=== PATIENT | male | born 1960 | race Caucasian/White ===

== ENCOUNTER 2018-07-20 02:26 | Inpatient (IN) | payer MEDICAID, OTHER ==
[~2018-07-20] VITALS: Ht 182.9 cm; Wt 71.4 kg
--- NOTE | 2018-07-20 02:34 | PHYS DOC ---
Past Medical History Past Medical History: VT Past Surgical History: Other Additional Past Surgical Histo: CARDIAC STENTS, TEETH REMOVAL Smoking: Cigarettes, Less than 1pk/day Alcohol Use: Occasionally Drug Use: None Adult General Chief Complaint Chief Complaint: CHEST PAIN HPI HPI Patient is a 57 year old man who presents with CP Patient is a poor historian and had onset of CP after waking up tonight. He drank a 12 pack of beer prior to falling asleep. Pain was substernal, sharp non radiating. In the field, he was diaphoretic and was given aspirin and NTG SL in route. He's had prior VT with cardiac stenting in 2009. Review of Systems Review of Systems Constitutional: Denies fever or chills Eyes: Denies change in visual acuity, redness, or eye pain HENT: Denies nasal congestion or sore throat Respiratory: Denies cough or shortness of breath Cardiovascular: with chest pain GI: Denies abdominal pain, nausea, vomiting, bloody stools or diarrhea : Denies dysuria or hematuria Musculoskeletal: Denies back pain or joint pain Integument: Denies rash or skin lesions Neurologic: Denies headache, focal weakness or sensory changes Endocrine: Denies polyuria or polydipsia All other systems were reviewed and found to be within normal limits, except as documented in this note. Current Medications Current Medications Current Medications Medications (Trade) Dose Ordered Sig/Jud Start Time Stop Time Status Last Admin Dose Admin Multi-Ingredient Mouthwash/Gargle (Gi Cocktail) 20 ml 1X ONCE 07/20/18 03:15 07/20/18 03:16 DC 07/20/18 03:52 20 ML Pantoprazole Sodium (PROTONIX VIAL for IV PUSH) 40 mg 1X ONCE 07/20/18 03:15 07/20/18 03:16 DC 07/20/18 03:52 40 MG Allergies Allergies Allergies Coded Allergies Type Severity Reaction Last Updated Verified morphine Adverse Reaction Intermediate 06/09/15 No Physical Exam Physical Exam Constitutional: Well developed, well nourished, no acute distress, non-toxic appearance. ETOH on breath HENT: Normocephalic, atraumatic, bilateral external ears normal, oropharynx moist, no oral exudates, nose normal. Eyes: PERRLA, EOMI, conjunctiva normal, no discharge. Neck: Normal range of motion, no tenderness, supple, no stridor. Cardiovascular: Slow rate and rhythm, no murmur Lungs & Thorax: Bilateral breath sounds clear to auscultation Abdomen: Bowel sounds normal, soft, no tenderness, no masses, no pulsatile masses. Rectal exam: normal tone stool brown, no blood or melena Skin: Warm, dry, no erythema, no rash. Back: No tenderness, no CVA tenderness. Extremities: No tenderness, no cyanosis, no clubbing, ROM intact, no edema. Neurologic: Alert and oriented X 3, normal motor function, normal sensory function, no focal deficits noted. Psychologic: Affect normal, judgement normal, mood normal. Current Patient Data Vital Signs Vital Signs Date Time Temp Pulse Resp B/P (MAP) Pulse Ox O2 Delivery O2 Flow Rate FiO2 07/20/18 04:19 78 22 135/87 (103) 100 Room Air Lab Values Laboratory Tests Test 07/20/18 02:38 07/20/18 02:40 POC Hemoglobin 12.9 g/dL (14-18) L POC Hematocrit 38 % (37-52) POC Sodium 133 mmol/L (135-145) L POC Potassium 4.2 mmol/L (3.5-5.0) POC Chloride 98 mmol/L (98-110) POC Total CO2 21 mmol/L (23-32) L Anion Gap 19 mmol/L (6-14) H 13 (6-14) POC Blood Urea Nitrogen 14 mg/dL (8-26) POC Creatinine 1.3 mg/dL (0.5-1.4) Glucose Level 112 mg/dL (70-99) H 115 mg/dL (70-99) H POC Ionized Calcium (Elizabeth) 1.01 mmol/L (1.13-1.32) L POC Troponin I 0.00 ng/ml (<0.08) White Blood Count 10.3 x10^3/uL (4.0-11.0) Red Blood Count 4.00 x10^6/uL (4.30-5.70) L Hemoglobin 13.1 g/dL (13.0-17.5) Hematocrit 37.5 % (39.0-53.0) L Mean Corpuscular Volume 94 fL (79-100) Mean Corpuscular Hemoglobin 33 pg (25-35) Mean Corpuscular Hemoglobin Concent 35 g/dL (31-37) Red Cell Distribution Width 13.8 % (11.5-14.5) Platelet Count 187 x10^3/uL (140-400) Neutrophils (%) (Auto) 79 % (31-73) H Lymphocytes (%) (Auto) 13 % (24-48) L Monocytes (%) (Auto) 6 % (0-9) Eosinophils (%) (Auto) 1 % (0-3) Basophils (%) (Auto) 1 % (0-3) Neutrophils # (Auto) 8.1 x10^3uL (1.8-7.7) H Lymphocytes # (Auto) 1.3 x10^3/uL (1.0-4.8) Monocytes # (Auto) 0.6 x10^3/uL (0.0-1.1) Eosinophils # (Auto) 0.1 x10^3/uL (0.0-0.7) Basophils # (Auto) 0.1 x10^3/uL (0.0-0.2) D-Dimer (Beverly) 0.43 ug/mlFEU (0.00-0.50) Sodium Level 134 mmol/L (136-145) L Potassium Level 4.3 mmol/L (3.5-5.1) Chloride Level 98 mmol/L (98-107) Carbon Dioxide Level 23 mmol/L (21-32) Blood Urea Nitrogen 15 mg/dL (8-26) Creatinine 1.2 mg/dL (0.7-1.3) Estimated GFR (Cockcroft-Gault) 62.2 BUN/Creatinine Ratio 13 (6-20) Calcium Level 8.8 mg/dL (8.5-10.1) Magnesium Level 2.0 mg/dL (1.8-2.4) Total Bilirubin 0.2 mg/dL (0.2-1.0) Aspartate Amino Transferase (AST) 20 U/L (15-37) Alanine Aminotransferase (ALT) 23 U/L (16-63) Alkaline Phosphatase 97 U/L (46-116) Troponin I Quantitative < 0.017 ng/mL (0.000-0.055) IY-Dmj-V-Type Natriuretic Peptide 44 pg/mL (0-124) Total Protein 7.2 g/dL (6.4-8.2) Albumin 3.4 g/dL (3.4-5.0) Albumin/Globulin Ratio 0.9 (1.0-1.7) L Lipase 470 U/L (73-393) H Ethyl Alcohol Level 128 mg/dL (0-10) H Laboratory Tests 07/20/18 02:40 Laboratory Tests 07/20/18 02:38 07/20/18 02:40 EKG EKG ECG 02:28 SB @ 56 with IRBBB Radiology/Procedures Radiology/Procedures Preliminary Emergency Department Reading CXR showed poor inspiration with no acute cardiopulmonary findings Course & Med Decision Making Course & Med Decision Making Pertinent Labs and Imaging studies reviewed. (See chart for details) Emergency Department course Patient presents with chest pain and alcohol intoxication DDx- ACS, GERD, PE, Pneumonia, Pancreatitis, alcoholic gastritis Patient was stable in the ED. ECG and troponin showed no evidence of ACS. CXR unremarkable . D-dimer normal, doubt PE. Lipase elevated consistent with pancreatitis. Serum ethanol level elevated. Heart score=4. Patient was given aspirin by EMS. 04:[address] Leal, telemetry for further evaluation 05:[address] eLal who agreed with admission. Dragon Disclaimer Dragon Disclaimer This electronic medical record was generated, in whole or in part, using a voice recognition dictation system. Departure Departure Impression: Primary Impression: Chest pain Additional Impressions: Alcohol intoxication Elevated lipase Disposition: ADMITTED INPATIENT Admitting Physician: Nicole Leal Condition: STABLE Referrals: NO PCP (PCP) Problem Qualifiers Primary Impression: Chest pain Chest pain type: precordial pain Qualified Codes: R07.2 - Precordial pain Additional Impressions: Alcohol intoxication Complication of substance-induced condition: uncomplicated Qualified Codes: F10.920 - Alcohol use, unspecified with intoxication, uncomplicated SAMANTA TINOCO MD Jul 20, 2018 02:34
[2018-07-20 02:50] LABS: BASO # 0.1 x10^3/uL (0.0-0.2); BASO % 1 % (0-3); EOS # 0.1 x10^3/uL (0.0-0.7); EOS % 1 % (0-3); HEMATOCRIT 37.5 % (39.0-53.0); HEMOGLOBIN 13.1 g/dL (13.0-17.5); LYMPH # 1.3 x10^3/uL (1.0-4.8); LYMPH % 13 % (24-48); MEAN CORPUSCULAR HEMOGLOBIN 33 pg (25-35); MEAN CORPUSCULAR HGB CONC 35 g/dL (31-37); MEAN CORPUSCULAR VOLUME 94 fL (79-100); MONO # 0.6 x10^3/uL (0.0-1.1); MONO % 6 % (0-9); NEUT # 8.1 x10^3uL (1.8-7.7); NEUT % 79 % (31-73); PLATELET COUNT 187 x10^3/uL (140-400); RED CELL DISTRIBUTION WIDTH 13.8 % (11.5-14.5); WHITE BLOOD COUNT 10.3 x10^3/uL (4.0-11.0)
[2018-07-20 02:51] LABS: CREATININE ISTAT 1.3 mg/dL (0.5-1.4); HEMOGLOBIN ISTAT 12.9 g/dL (14-18); ION CA ISTAT 1.01 mmol/L (1.13-1.32); POTASSIUM ISTAT 4.2 mmol/L (3.5-5.0)
[2018-07-20 03:02] LABS: CALCIUM 8.8 mg/dL (8.5-10.1); CREATININE 1.2 mg/dL (0.7-1.3); GFR 62.2; POTASSIUM 4.3 mmol/L (3.5-5.1)
[2018-07-20 03:07] LABS: ALBUMIN 3.4 g/dL (3.4-5.0); ALBUMIN/GLOBULIN RATIO 0.9 (1.0-1.7); TOTAL BILIRUBIN 0.2 mg/dL (0.2-1.0); TOTAL PROTEIN 7.2 g/dL (6.4-8.2)
[2018-07-20] MEDS ORDERED: LIDO:MAALOX 1:1 20 ML SINGLE DOSE. PO ONE (03:15)
[2018-07-20] MEDS ORDERED: PANTOPRAZOLE IV PUSH 40 MG VIAL. IVP ONE (03:15)
[2018-07-20] MEDS ORDERED: ONDANSETRON PF 4 MG/2 ML VIAL. IM ONE (04:45)
[2018-07-20] MEDS ORDERED: ONDANSETRON PF 4 MG/2 ML VIAL. IV PRN ×2 (04:45→10:30)
[2018-07-20] MEDS ORDERED: SUCRALFATE 1 GM/10 ML ORAL.SUSP. PO ONE (05:15)
--- NOTE | 2018-07-20 06:12 | EKG ---
[facility] [address] [place] [address] Test Date: 2018-07-20 Test Time: 02:28:34 Pat Name: ABBY FERGUSON Department: Room: 562 1 Gender: M Php Developer: : 1960 Requested By: SAMANTA TINOCO Order Number: [id number] Reading MD: Tanmay Steinberg MD Measurements Intervals Kermit Rate: 56 P: 57 DE: 156 QRS: 34 QRSD: 68 T: 53 QT: 448 QTc: 435 Interpretive Statements SINUS RHYTHM RBBB NON-SPECIFIC ST/T CHANGES Electronically Signed On 07-21-2018 13:45:42 CDT by Tanmay Steinberg MD
[2018-07-20 06:20] VITALS: BP 141/104
[2018-07-20 06:52] LABS: FECAL OB PT NEGATIVE (NEG)
[2018-07-20] MEDS ORDERED: THIA100T22 PO (07:36)
[2018-07-20] MEDS ORDERED: BUPR200T2 PO (07:36)
[2018-07-20] MEDS ORDERED: ESCITALOPRAM OX10 MG PO (07:36)
[2018-07-20] MEDS ORDERED: FOLI1TAB16 PO (07:36)
[2018-07-20] MEDS ORDERED: CALC300T5 PO (07:36)
[2018-07-20] MEDS ORDERED: ASPI325T8 PO (07:36)
--- NOTE | 2018-07-20 08:13 | RAD ---
EXAM: CHEST 1 VIEW History: Chest pain COMPARISON: 03/19/2012 TECHNIQUE: Single portable radiograph of the chest FINDINGS: The cardiac silhouette is unremarkable. Scattered calcified granulomas identified in the bilateral lungs. Minimal prominent appearing interstitial lung markings. IMPRESSION: Minimal prominent appearing bilateral interstitial lung markings could be minimal congestive changes or interstitial infiltrates. Electronically signed by: Raymon Truong MD (07/20/2018 8:09 AM) [id number]
[2018-07-20] MEDS ORDERED: DOCUSATE SODIUM 100 MG CAPSULE. PO PRN (10:30)
[2018-07-20] MEDS ORDERED: ACETAMINOPHEN 325 MG TABLET. PO PRN (10:30)
[2018-07-20 11:00] VITALS: BP 127/85
--- NOTE | 2018-07-20 11:24 | PDOC1 ---
History and Physical Date of Admission Date of Admission 07/19/18 Identification/Chief Complaint Chief Complaint abd pain Source Source: Chart review, Patient History of Present Illness History of Present Illness Patient is a 57 year old man who presents with abd pain yesterday. PT denies heavy drinker, but yesterday drink 12 packs of beer. He went to sleep , then woke up with epigastric abd pain, burning, constant, 10-/10, no radiation. He didnot have fever, chills, sob. He told ERP chest pain, and diaphoretic. He was given aspirin and NTG SL in route. He's had prior SC with cardiac stenting in 2009. He got gi cocktail in ER, not helping. Now the abd pain is mainly middle abd, 6/10, no tenderness. took lots of tums at home daily. pt only takes asa for SC. Past Medical History Past Medical History pseudoseizure conversion syndrome, chronic fatigue syndrome CAD with 1 stent 2009, [facility] Past Surgical History Past Surgical History: No pertinent history Family History Family History: Hypertension Social History Smoke: <1 pack per day ALCOHOL: heavy Drugs: None Current Problem List Problem List Problems Medical Problems: (1) Alcohol intoxication Status: Acute (2) Chest pain Status: Acute (3) Elevated lipase Status: Acute Current Medications Current Medications Current Medications Medications (Trade) Dose Ordered Sig/Jud Start Time Stop Time Status Last Admin Dose Admin Acetaminophen (Tylenol) 650 mg PRN Q6HRS PRN 07/20/18 10:30 Aspirin (Ecotrin) 325 mg [id number] 07/21/18 08:00 Bupropion HCl (Wellbutrin Sr) 400 mg DAILY 07/20/18 11:00 Carvedilol (Coreg) 6.25 mg BIDWMEALS 07/20/18 11:00 Citalopram Hydrobromide (CeleXA) 20 mg DAILY 07/20/18 11:00 Docusate Sodium (Colace) 100 mg PRN DAILY PRN 07/20/18 10:30 Folic Acid (Folic Acid) 1 mg DAILY 07/20/18 11:00 Multi-Ingredient Mouthwash/Gargle (Gi Cocktail) 20 ml 1X ONCE 07/20/18 03:15 07/20/18 03:16 DC 07/20/18 03:52 Ondansetron HCl (Zofran) 4 mg PRN Q6HRS PRN 07/20/18 10:30 Pantoprazole Sodium (PROTONIX VIAL for IV PUSH) 40 mg 1X ONCE 07/20/18 03:15 07/20/18 03:16 DC 07/20/18 03:52 Pantoprazole Sodium (Protonix) 40 mg DAILYAC 07/20/18 11:00 Sucralfate (Carafate) 1 gm 1X ONCE 07/20/18 05:15 07/20/18 05:16 DC 07/20/18 05:12 Thiamine Mononitrate (Vitamin B-1) 100 mg DAILY 07/20/18 11:00 Tramadol HCl (Ultram) 50 mg PRN Q6HRS PRN 07/20/18 10:30 Allergies Allergies Allergies Coded Allergies Type Severity Reaction Last Updated Verified morphine Adverse Reaction Intermediate 06/09/15 No ROS Review of System CONSTITUTIONAL: No fever or chills EYES: No recent changes SKIN: No rash or itching CARDIOVASCULAR: No chest pain, syncope, palpitations, or edema RESPIRATORY: No SOB or cough GASTROINTESTINAL: No nausea, vomiting or abdominal pain NEUROLOGICAL: No headaches or weakness ENDOCRINE: No cold or heat intolerance GENITOURINARY: No urgency or frequency of urination MUSCULOSKELETAL: No back pain or joint pain LYMPHATICS: No enlarged lymph nodes PSYCHIATRIC: No anxiety or depression Physical Exam Physical Exam GEN.: No apparent distress. Alert and oriented. HEENT: Head is normocephalic, atraumatic NECK: Supple. LUNGS: Clear to auscultation. HEART: RRR, S1, S2 present. Peripheral pulses intact ABDOMEN: Soft, Positive bowel sounds. no tenderness. EXTREMITIES: Without any cyanosis. NEUROLOGIC: Normal speech, normal tone PSYCHIATRIC: Normal affect, normal mood. SKIN: No ulcerations Vitals Vitals Vital Signs Date Time Temp Pulse Resp B/P (MAP) Pulse Ox O2 Delivery O2 Flow Rate FiO2 07/20/18 10:32 Room Air 07/20/18 06:20 97.7 75 20 141/104 (116) 96 97.7 Labs Labs Laboratory Tests Test 07/20/18 02:38 07/20/18 02:40 07/20/18 05:40 07/20/18 07:26 Bedside Hemoglobin 12.9 g/dL (14-18) Bedside Hematocrit 38 % (37-52) Bedside Sodium 133 mmol/L (135-145) Bedside Potassium 4.2 mmol/L (3.5-5.0) Bedside Chloride 98 mmol/L (98-110) Bedside Total CO2 21 mmol/L (23-32) Anion Gap 19 mmol/L (6-14) 13 (6-14) Bedside Blood Urea Nitrogen 14 mg/dL (8-26) Bedside Creatinine 1.3 mg/dL (0.5-1.4) Glucose Level 112 mg/dL (70-99) 115 mg/dL (70-99) Bedside Ionized Calcium (Elizabeth) 1.01 mmol/L (1.13-1.32) Bedside Troponin I 0.00 ng/ml (<0.08) White Blood Count 10.3 x10^3/uL (4.0-11.0) Red Blood Count 4.00 x10^6/uL (4.30-5.70) Hemoglobin 13.1 g/dL (13.0-17.5) Hematocrit 37.5 % (39.0-53.0) Mean Corpuscular Volume 94 fL (79-100) Mean Corpuscular Hemoglobin 33 pg (25-35) Mean Corpuscular Hemoglobin Concent 35 g/dL (31-37) Red Cell Distribution Width 13.8 % (11.5-14.5) Platelet Count 187 x10^3/uL (140-400) Neutrophils (%) (Auto) 79 % (31-73) Lymphocytes (%) (Auto) 13 % (24-48) Monocytes (%) (Auto) 6 % (0-9) Eosinophils (%) (Auto) 1 % (0-3) Basophils (%) (Auto) 1 % (0-3) Neutrophils # (Auto) 8.1 x10^3uL (1.8-7.7) Lymphocytes # (Auto) 1.3 x10^3/uL (1.0-4.8) Monocytes # (Auto) 0.6 x10^3/uL (0.0-1.1) Eosinophils # (Auto) 0.1 x10^3/uL (0.0-0.7) Basophils # (Auto) 0.1 x10^3/uL (0.0-0.2) D-Dimer (Beverly) 0.43 ug/mlFEU (0.00-0.50) Sodium Level 134 mmol/L (136-145) Potassium Level 4.3 mmol/L (3.5-5.1) Chloride Level 98 mmol/L (98-107) Carbon Dioxide Level 23 mmol/L (21-32) Blood Urea Nitrogen 15 mg/dL (8-26) Creatinine 1.2 mg/dL (0.7-1.3) Estimated GFR (Cockcroft-Gault) 62.2 BUN/Creatinine Ratio 13 (6-20) Calcium Level 8.8 mg/dL (8.5-10.1) Magnesium Level 2.0 mg/dL (1.8-2.4) Total Bilirubin 0.2 mg/dL (0.2-1.0) Aspartate Amino Transf (AST/SGOT) 20 U/L (15-37) Alanine Aminotransferase (ALT/SGPT) 23 U/L (16-63) Alkaline Phosphatase 97 U/L (46-116) Troponin I Quantitative < 0.017 ng/mL (0.000-0.055) < 0.017 ng/mL (0.000-0.055) AI-Blt-X-Type Natriuretic Peptide 44 pg/mL (0-124) Total Protein 7.2 g/dL (6.4-8.2) Albumin 3.4 g/dL (3.4-5.0) Albumin/Globulin Ratio 0.9 (1.0-1.7) Lipase 470 U/L (73-393) Ethyl Alcohol Level 128 mg/dL (0-10) Stool Occult Blood Negative (NEG) Laboratory Tests Test 07/20/18 02:38 07/20/18 02:40 07/20/18 05:40 07/20/18 07:26 Bedside Hemoglobin 12.9 g/dL (14-18) Bedside Hematocrit 38 % (37-52) Bedside Sodium 133 mmol/L (135-145) Bedside Potassium 4.2 mmol/L (3.5-5.0) Bedside Chloride 98 mmol/L (98-110) Bedside Total CO2 21 mmol/L (23-32) Anion Gap 19 mmol/L (6-14) 13 (6-14) Bedside Blood Urea Nitrogen 14 mg/dL (8-26) Bedside Creatinine 1.3 mg/dL (0.5-1.4) Glucose Level 112 mg/dL (70-99) 115 mg/dL (70-99) Bedside Ionized Calcium (Elizabeth) 1.01 mmol/L (1.13-1.32) Bedside Troponin I 0.00 ng/ml (<0.08) White Blood Count 10.3 x10^3/uL (4.0-11.0) Red Blood Count 4.00 x10^6/uL (4.30-5.70) Hemoglobin 13.1 g/dL (13.0-17.5) Hematocrit 37.5 % (39.0-53.0) Mean Corpuscular Volume 94 fL (79-100) Mean Corpuscular Hemoglobin 33 pg (25-35) Mean Corpuscular Hemoglobin Concent 35 g/dL (31-37) Red Cell Distribution Width 13.8 % (11.5-14.5) Platelet Count 187 x10^3/uL (140-400) Neutrophils (%) (Auto) 79 % (31-73) Lymphocytes (%) (Auto) 13 % (24-48) Monocytes (%) (Auto) 6 % (0-9) Eosinophils (%) (Auto) 1 % (0-3) Basophils (%) (Auto) 1 % (0-3) Neutrophils # (Auto) 8.1 x10^3uL (1.8-7.7) Lymphocytes # (Auto) 1.3 x10^3/uL (1.0-4.8) Monocytes # (Auto) 0.6 x10^3/uL (0.0-1.1) Eosinophils # (Auto) 0.1 x10^3/uL (0.0-0.7) Basophils # (Auto) 0.1 x10^3/uL (0.0-0.2) D-Dimer (Beverly) 0.43 ug/mlFEU (0.00-0.50) Sodium Level 134 mmol/L (136-145) Potassium Level 4.3 mmol/L (3.5-5.1) Chloride Level 98 mmol/L (98-107) Carbon Dioxide Level 23 mmol/L (21-32) Blood Urea Nitrogen 15 mg/dL (8-26) Creatinine 1.2 mg/dL (0.7-1.3) Estimated GFR (Cockcroft-Gault) 62.2 BUN/Creatinine Ratio 13 (6-20) Calcium Level 8.8 mg/dL (8.5-10.1) Magnesium Level 2.0 mg/dL (1.8-2.4) Total Bilirubin 0.2 mg/dL (0.2-1.0) Aspartate Amino Transf (AST/SGOT) 20 U/L (15-37) Alanine Aminotransferase (ALT/SGPT) 23 U/L (16-63) Alkaline Phosphatase 97 U/L (46-116) Troponin I Quantitative < 0.017 ng/mL (0.000-0.055) < 0.017 ng/mL (0.000-0.055) HV-Llm-T-Type Natriuretic Peptide 44 pg/mL (0-124) Total Protein 7.2 g/dL (6.4-8.2) Albumin 3.4 g/dL (3.4-5.0) Albumin/Globulin Ratio 0.9 (1.0-1.7) Lipase 470 U/L (73-393) Ethyl Alcohol Level 128 mg/dL (0-10) Stool Occult Blood Negative (NEG) VTE Prophylaxis Ordered VTE Prophylaxis Devices: Yes VTE Pharmacological Prophylaxi: Yes Assessment/Plan Assessment/Plan abd pain, 2/2 gastritis vs ulcer pseudoseizure conversion syndrome, chronic fatigue syndrome CAD with 1 stent 2009, [facility] tobacco[facility] slightly elevated lipase HTN accelerated plan: gi consult add protonix daily EKG, CE neg. check echo cont home meds, on asa repeat labs tmr dvt ppx talked to sister at bedside pain control consider ABD US AND ADD sucralfate if not better add coreg for htn, mi history. check lipid panel CASSIE NOGUERA MD Jul 20, 2018 11:24
[2018-07-20] MEDS: ENOXAPARIN 40 MG/0.4 ML SYRINGE. SQ SCH (11:38)
[2018-07-20] MEDS: THIAMINE 100 MG TABLET. PO SCH (11:38)
[2018-07-20] MEDS: CITALOPRAM 20 MG TABLET. PO SCH (11:38)
[2018-07-20] MEDS: FOLIC ACID 1 MG TABLET. PO SCH (11:38)
[2018-07-20] MEDS: PANTOPRAZOLE 40 MG TABLET.DR. PO SCH (11:38)
[2018-07-20] MEDS: CARVEDILOL 6.25 MG TABLET. PO SCH ×2 (11:39→17:59)
--- NOTE | 2018-07-20 12:33 | CARD ---
MR#: [id number] Date of Study: 07/20/2018 Ordering Physician: CASSIE NOGUERA, Referring Physician: ERIC CHAN Tech: Felisa Mcleod APPROVED REPORT EXAM: Two-dimensional and M-mode echocardiogram with Doppler and color Doppler. Other Information Quality : AverageHR: 71bpm Technically limited study due to body habitus. INDICATION Chest Pain 2D DIMENSIONS RVDd3.0 (2.9-3.5cm)Left Atrium(2D)3.3 (1.6-4.0cm) IVSd0.8 (0.7-1.1cm)Aortic Root(2D)3.4 (2.0-3.7cm) LVDd4.2 (3.9-5.9cm)LVOT Diameter2.5 (1.8-2.4cm) PWd1.2 (0.7-1.1cm)LVDs2.5 (2.5-4.0cm) FS (%) 40.9 %SV56.2 ml LVEF(%)72.1 (>50%) Aortic Valve AoV Peak Jonatan.143.0cm/sAoV VTI27.9cm AO Peak GR.8.2mmHgLVOT Peak Jonatan.114.2cm/s LVOT VTI 26.03cmAO Mean GR.4mmHg DAI (VMAX)2.53dj7YHH (VTI)4.44cm2 Mitral Valve MV E Rumxjrgc40.3cm/sMV DECEL [id number] MV A Gheyoodh26.6cm/sMV FEB39fr E/A Ratio1.4MVA (PHT)3.39cm2 TDI E/Lateral E'6.9E/Medial E'9.6 Pulmonary Valve PV Peak Fyvnotwv213.4cm/sPV Peak Grad.5mmHg Tricuspid Valve RAP [id number] Peak Gr.35mmHg [id number] LEFT VENTRICLE The left ventricle is normal size. There is normal left ventricular wall thickness. The left ventricu lar systolic function is normal and the ejection fraction is within normal range. The Ejection Fracti on is 60-65%. There is normal LV segmental wall motion. Transmitral Doppler flow pattern is normal fo r age. RIGHT VENTRICLE The right ventricle is normal size. There is normal right ventricular wall thickness. The right ventr icular systolic function is normal. ATRIA The left atrium size is normal. The right atrium size is normal. The interatrial septum is intact wit h no evidence for an atrial septal defect or patent foramen ovale as noted on 2-D or Doppler imaging. AORTIC VALVE The aortic valve is normal in structure and function. Doppler and Color Flow revealed trace aortic re gurgitation. Calculated aortic valve area is 4 cm2 with maximum pressure gradient of 8 mmHg and mean pressure gradient of 4 mmHg. MITRAL VALVE The mitral valve is thickened but opens well. There is no mitral valve stenosis. Doppler and Color-fl ow revealed trace mitral regurgitation. TRICUSPID VALVE The tricuspid valve is normal in structure and function. Doppler and Color Flow revealed trace tricus pid regurgitation. There is no tricuspid valve stenosis. PULMONIC VALVE The pulmonic valve is not well visualized. Doppler and Color Flow revealed trace pulmonic valvular re gurgitation. There is no pulmonic valvular stenosis. GREAT VESSELS The aortic root is normal in size. The IVC is normal in size and collapses >50% with inspiration. PERICARDIAL EFFUSION There is no evidence of significant pericardial effusion. Critical Notification Critical Value: No <Conclusion> The left ventricular systolic function is normal and the ejection fraction is within normal range. Th e Ejection Fraction is 60-65%. There is normal LV segmental wall motion. Signed by : Tanmay Steinberg, Electronically Approved : 07/20/2018 12:32:36
[2018-07-20] MEDS: traMADol 50 MG TABLET PO PRN ×2 (12:59→22:23)
[2018-07-20] MEDS: buPROPion SR 100 MG TABLET.SA. PO SCH (12:59)
[2018-07-20] MEDS ORDERED: CALCIUM CARBONATE 500 MG TAB.CHEW PO PRN (13:15)
--- NOTE | 2018-07-20 14:26 | PDOC2 ---
GI CONSULT Reason For Consult: Epigastric pain/abnormal lipase HPI: HPI: 57 y/o male awoken from sleep early today with epigastric pain; describes "burning". No antacids in the house so came to ER. He downplays chronic symptoms, though sister says "eats TUMS". Denies typical heartburn or dysphagia. Did have EGD at [place] years ago, but no recall of findings nor practitioner. Denies pc bloating, but frequent early satiety and more of a nosher than regular meal-eater. No h/o PUD, GB, liver or pancreatic disease. ASA 325 daily; no NSAIDS. Smokes 1/2 ppd or so. Heavy drinker in the past; less so now, but occasional binge as last night. Occasional constipation he attributes to his meds. No diarrhea, overt blood in stool nor melena. Has lost ~8# over past year. Appetite variable. Denies N, V. Had colonoscopy this year at [facility] that was OK. GIFH positive for GB disease in sister. PMH: PMH: Conversion disorder/pseudoseizures, CFS (sister says "LYME"), ASHD post PCI, Anxiety. Multiple tooth extractions, otherwise no surgery. FH: Family History: Hypertension Social History: Smoke: <1 pack per day ALCOHOL: heavy Drugs: None ROS: GEN: Denies fevers, chills, sweats HEENT: Denies blurred vision, sore throat CV: Denies chest pain RESP: Denies shortness of air, cough GI: Per HPI : Denies hematuria, dysuria ENDO: Denies weight changes NEURO: Denies confusion, dizziness MSK: Denies weakness, joint pain/swelling SKIN: Denies jaundice, pruritus Vitals: Vitals: Vital Signs Date Time Temp Pulse Resp B/P (MAP) Pulse Ox O2 Delivery O2 Flow Rate FiO2 07/20/18 12:59 18 94 Room Air 07/20/18 11:39 83 127/85 07/20/18 11:00 97.5 97.5 Labs: Labs: Laboratory Tests Test 07/20/18 02:38 07/20/18 02:40 07/20/18 05:40 07/20/18 07:26 Bedside Hemoglobin 12.9 g/dL (14-18) Bedside Hematocrit 38 % (37-52) Bedside Sodium 133 mmol/L (135-145) Bedside Potassium 4.2 mmol/L (3.5-5.0) Bedside Chloride 98 mmol/L (98-110) Bedside Total CO2 21 mmol/L (23-32) Anion Gap 19 mmol/L (6-14) 13 (6-14) Bedside Blood Urea Nitrogen 14 mg/dL (8-26) Bedside Creatinine 1.3 mg/dL (0.5-1.4) Glucose Level 112 mg/dL (70-99) 115 mg/dL (70-99) Bedside Ionized Calcium (Elizabeth) 1.01 mmol/L (1.13-1.32) Bedside Troponin I 0.00 ng/ml (<0.08) White Blood Count 10.3 x10^3/uL (4.0-11.0) Red Blood Count 4.00 x10^6/uL (4.30-5.70) Hemoglobin 13.1 g/dL (13.0-17.5) Hematocrit 37.5 % (39.0-53.0) Mean Corpuscular Volume 94 fL (79-100) Mean Corpuscular Hemoglobin 33 pg (25-35) Mean Corpuscular Hemoglobin Concent 35 g/dL (31-37) Red Cell Distribution Width 13.8 % (11.5-14.5) Platelet Count 187 x10^3/uL (140-400) Neutrophils (%) (Auto) 79 % (31-73) Lymphocytes (%) (Auto) 13 % (24-48) Monocytes (%) (Auto) 6 % (0-9) Eosinophils (%) (Auto) 1 % (0-3) Basophils (%) (Auto) 1 % (0-3) Neutrophils # (Auto) 8.1 x10^3uL (1.8-7.7) Lymphocytes # (Auto) 1.3 x10^3/uL (1.0-4.8) Monocytes # (Auto) 0.6 x10^3/uL (0.0-1.1) Eosinophils # (Auto) 0.1 x10^3/uL (0.0-0.7) Basophils # (Auto) 0.1 x10^3/uL (0.0-0.2) D-Dimer (Beverly) 0.43 ug/mlFEU (0.00-0.50) Sodium Level 134 mmol/L (136-145) Potassium Level 4.3 mmol/L (3.5-5.1) Chloride Level 98 mmol/L (98-107) Carbon Dioxide Level 23 mmol/L (21-32) Blood Urea Nitrogen 15 mg/dL (8-26) Creatinine 1.2 mg/dL (0.7-1.3) Estimated GFR (Cockcroft-Gault) 62.2 BUN/Creatinine Ratio 13 (6-20) Calcium Level 8.8 mg/dL (8.5-10.1) Magnesium Level 2.0 mg/dL (1.8-2.4) Total Bilirubin 0.2 mg/dL (0.2-1.0) Aspartate Amino Transf (AST/SGOT) 20 U/L (15-37) Alanine Aminotransferase (ALT/SGPT) 23 U/L (16-63) Alkaline Phosphatase 97 U/L (46-116) Troponin I Quantitative < 0.017 ng/mL (0.000-0.055) < 0.017 ng/mL (0.000-0.055) QY-Aav-Y-Type Natriuretic Peptide 44 pg/mL (0-124) Total Protein 7.2 g/dL (6.4-8.2) Albumin 3.4 g/dL (3.4-5.0) Albumin/Globulin Ratio 0.9 (1.0-1.7) Lipase 470 U/L (73-393) Ethyl Alcohol Level 128 mg/dL (0-10) Stool Occult Blood Negative (NEG) --mildly elevaed lipase, significance unclear. Allergies: Coded Allergies: morphine (Unverified Adverse Reaction, Intermediate, 06/09/15) DRY HEAVES Medications: Current Medications Medications (Trade) Dose Ordered Sig/Jud Route PRN Reason Start Time Stop Time Status Last Admin Dose Admin Pantoprazole Sodium (PROTONIX VIAL for IV PUSH) 40 mg 1X ONCE IVP 07/20/18 03:15 07/20/18 03:16 DC 07/20/18 03:52 Multi-Ingredient Mouthwash/Gargle (Gi Cocktail) 20 ml 1X ONCE PO 07/20/18 03:15 07/20/18 03:16 DC 07/20/18 03:52 Ondansetron HCl (Zofran) 4 mg PRN Q8HRS PRN IV NAUSEA/VOMITING 07/20/18 04:45 07/21/18 04:44 07/20/18 04:43 Sucralfate (Carafate) 1 gm 1X ONCE PO 07/20/18 05:15 07/20/18 05:16 DC 07/20/18 05:12 Folic Acid (Folic Acid) 1 mg DAILY PO 07/20/18 11:00 07/20/18 11:38 Bupropion HCl (Wellbutrin Sr) 400 mg DAILY PO 07/20/18 11:00 07/20/18 12:59 Citalopram Hydrobromide (CeleXA) 20 mg DAILY PO 07/20/18 11:00 07/20/18 11:38 Thiamine Mononitrate (Vitamin B-1) 100 mg DAILY PO 07/20/18 11:00 07/20/18 11:38 Tramadol HCl (Ultram) 50 mg PRN Q6HRS PRN PO MILD TO MODERATE PAIN 07/20/18 10:30 07/20/18 12:59 Carvedilol (Coreg) 6.25 mg BIDWMEALS PO 07/20/18 11:00 07/20/18 11:39 Pantoprazole Sodium (Protonix) 40 mg DAILYAC PO 07/20/18 11:00 07/20/18 11:38 Enoxaparin Sodium (Lovenox 40mg Syringe) 40 mg Q24H SQ 07/20/18 12:00 07/20/18 11:38 Imaging: Imaging: No GI imaging. PE: GEN: NAD HEENT: Atraumatic, PERRLA LUNGS: CTAB HEART: RRR, no murmurs ABD: NABS, S/ND/NT, no masses EXTREMITY: No edema SKIN: No rashes, no jaundice NEURO/PSYCH: A & O 3 A/P: A/P: IMP: Epigastric pain, pancreatitis doubtful. Suspect his take on GERD. Can't rule out but not suspect; usually DU will feel better with food, worse. Elevated lipase, mild. More reliable to use 3x normal as cutoff for diagnosing acute pancreatitis. Historically up to date with CRC screening; at average risk. REC: PPI daily. Antacids prn. If persistent symptoms, could consder EGD. JIM FOSTER MD Jul 20, 2018 14:26
[2018-07-20 15:00] VITALS: BP 131/77
[2018-07-20] MEDS ORDERED: CONTRAST GIVEN. MC PRN (15:45)
[2018-07-20] MEDS ORDERED: IOHEXOL 300 MG/ML 100ML VIAL. IV ONE (15:45)
[2018-07-20] MEDS ORDERED: IOHEXOL 240 MG/ML 50ML VIAL. PO ONE (15:45)
--- NOTE | 2018-07-20 16:04 | RAD ---
Examination: CT of the abdomen pelvis with IV contrast HISTORY: History of abdominal pain COMPARISON: None available Technique: Axial CT images of the abdomen pelvis were performed with oral and IV contrast. Coronal and sagittal reformats are performed. Exposure: One or more of the following individualized dose reduction techniques were utilized for this examination: 1. Automated exposure control 2. Adjustment of the mA and/or kV according to patient size 3. Use of iterative reconstruction technique. FINDINGS: Minimal bibasilar lung atelectasis. No evidence of free air identified in the abdomen. Mild decreased attenuation noted throughout the liver likely hepatic steatosis. The visualized spleen, adrenals grossly appears unremarkable. The gallbladder is mildly distended. The stomach is mildly distended. The visualized pancreas grossly appears unremarkable. The small bowel is nondilated. Feces and gas noted throughout the colon. The appendix is normal. Urinary bladder is mildly distended. The bilateral kidneys enhance symmetrically. Small cystic structures identified in the left kidney with the largest measuring 7 mm are difficult to characterize probably cyst. Moderate aortic atherosclerosis. Moderate compression change of L4 vertebral body. Moderate degenerative changes lumbar spine. IMPRESSION: 1. No acute intra-abdominal findings. 2. Age-indeterminate moderate compression change of L5 vertebral body. 3. Small cystic structures identified in the left kidney are difficult to characterize with the largest measuring 7 mm probably cyst. 4. Mild hepatic steatosis. Electronically signed by: Raymon Truong MD (07/20/2018 4:01 PM) [id number]
[2018-07-20 19:02] VITALS: BP 109/62
[2018-07-20 23:10] VITALS: BP 116/64
[2018-07-21 03:41] VITALS: BP 120/61
[2018-07-21 05:05] LABS: BASO % 1 % (0-3); EOS # 0.1 x10^3/uL (0.0-0.7); EOS % 2 % (0-3); HEMATOCRIT 41.6 % (39.0-53.0); HEMOGLOBIN 14.4 g/dL (13.0-17.5); LYMPH # 1.8 x10^3/uL (1.0-4.8); LYMPH % 27 % (24-48); MEAN CORPUSCULAR HEMOGLOBIN 32 pg (25-35); MEAN CORPUSCULAR HGB CONC 35 g/dL (31-37); MEAN CORPUSCULAR VOLUME 94 fL (79-100); MONO # 0.9 x10^3/uL (0.0-1.1); MONO % 13 % (0-9); NEUT # 3.8 x10^3uL (1.8-7.7); NEUT % 57 % (31-73); PLATELET COUNT 216 x10^3/uL (140-400); RED BLOOD COUNT 4.44 x10^6/uL (4.30-5.70); RED CELL DISTRIBUTION WIDTH 13.5 % (11.5-14.5); WHITE BLOOD COUNT 6.6 x10^3/uL (4.0-11.0)
[2018-07-21 05:15] LABS: CALCIUM 9.4 mg/dL (8.5-10.1); CREATININE 1.1 mg/dL (0.7-1.3); GFR 68.8; POTASSIUM 4.3 mmol/L (3.5-5.1)
[2018-07-21 05:18] LABS: CHOLESTEROL/HDL RATIO 3.9
[2018-07-21 07:00] VITALS: BP 124/76
[2018-07-21] MEDS ORDERED: ASPIRIN ENTERIC COATED 325 MG TABLET.DR. PO SCH (08:00)
[2018-07-21] MEDS: CITALOPRAM 20 MG TABLET. PO SCH (08:48)
[2018-07-21] MEDS: THIAMINE 100 MG TABLET. PO SCH (08:48)
[2018-07-21] MEDS: buPROPion SR 100 MG TABLET.SA. PO SCH (08:48)
[2018-07-21] MEDS: FOLIC ACID 1 MG TABLET. PO SCH (08:48)
[2018-07-21] MEDS: CARVEDILOL 6.25 MG TABLET. PO SCH (08:48)
[2018-07-21] MEDS: PANTOPRAZOLE 40 MG TABLET.DR. PO SCH (08:48)
[2018-07-21] MEDS ORDERED: Pantoprazole PO (10:39)
[2018-07-21] MEDS ORDERED: CARV6.252 PO (10:39)
[2018-07-21 11:00] VITALS: BP 119/74
[2018-07-21] MEDS: ENOXAPARIN 40 MG/0.4 ML SYRINGE. SQ SCH (12:53)
--- NOTE | 2018-07-21 13:51 | PDOC3 ---
Discharge Summary [facility] Date of Admission: Jul 20, 2018 Discharge Date: Jul 21, 2018 Admitting Diagnosis abd pain, 2/2 GERD likely h/o pseudoseizure h/o conversion syndrome, chronic fatigue syndrome CAD with 1 stent 2009, [facility] [place] [facility] slightly elevated lipase HTN accelerated left kidney small cyst l5 compressive fx chronic likely, no back pain Final Diagnosis CONSULTS gi Brief Hospital Course Patient is a 57 year old man who presents with abd pain yesterday. PT denies heavy drinker, but yesterday drink 12 packs of beer. He went to sleep , then woke up with epigastric abd pain, burning, constant, 10-/10, no radiation. He didnot have fever, chills, sob. He told ERP chest pain, and diaphoretic. He was given aspirin and NTG SL in route. He's had prior RI with cardiac stenting in 2009. He got gi cocktail in ER, not helping. Now the abd pain is mainly middle abd, 6/10, no tenderness. took lots of tums at home daily. pt only takes asa for RI. CE, EKG neg. echo ok. CT as per GI, no acute abd abnormality. lipase down to 116 from 470. pt has no abd pain today, no N/V or diarrhea. advance diet, dc later today. dc home with protonix , coreg. dc time 35min. GEN.: No apparent distress. Alert and oriented. HEENT: Head is normocephalic, atraumatic NECK: Supple. LUNGS: Clear to auscultation. HEART: RRR, S1, S2 present. Peripheral pulses intact ABDOMEN: Soft, Positive bowel sounds. no tenderness. EXTREMITIES: Without any cyanosis. NEUROLOGIC: Normal speech, normal tone PSYCHIATRIC: Normal affect, normal mood. SKIN: No ulcerations Disposition home CONDITION AT DISCHARGE: Improved Scheduled Aspirin (Aspirin), 1 TAB PO DAILY, (Reported) Bupropion Hcl (Wellbutrin Sr), 400 MG PO DAILY, (Reported) Carvedilol (Carvedilol), 6.25 MG PO BIDWMEALS Escitalopram Oxalate (Escitalopram Oxalate), 1 TAB PO DAILY, (Reported) Folic Acid (Folic Acid), 1 TAB PO DAILY, (Reported) Thiamine Mononitrate (Vitamin B-1), 100 MG PO DAILY, (Reported) [Pantoprazole], 40 MG PO DAILYAC Miscellaneous Medications Calcium Carbonate (Tums), 300 MG PO, (Reported) CASSIE NOGUERA MD Jul 21, 2018 13:51
[2018-07-21 15:00] VITALS: BP 123/84
--- NOTE | 2018-07-21 15:20 | PDOC ---
Subjective: Subjective: Patient was seen and examined at bed side. He reports he had no acute events over night. He denies abdominal pain, nausea, vomiting,dysphagia or odynophagia. He denies change in bowel habits or overt GI bleeding. No chest pain, sob or PND.He denies any other acute symptoms. Patient very eager to get discharged today.Patent denies using NSAIDs. He admits to smoking half a pack of cigarettes a day. He denies using illicit drugs. Objective: Vital Signs: Vital Signs Date Time Temp Pulse Resp B/P (MAP) Pulse Ox O2 Delivery O2 Flow Rate FiO2 07/21/18 11:00 98.6 62 18 119/74 (09) 94 Room Air 98.6 Imaging: [facility] [address] [place] [address] IMAGING REPORT Signed PATIENT: ABBY FERGUSON ACCOUNT: [id number] : 1960 LOCATION: [facility] AGE: 57 SEX: M EXAM STATUS: ADM IN ORD. PHYSICIAN: CASSIE NOGUERA MD REASON: po and iv contrast for abd pain PROCEDURE: CT ABD PELV W/ORAL&IV CONTRAST Examination: CT of the abdomen pelvis with IV contrast HISTORY: History of abdominal pain COMPARISON: None available Technique: Axial CT images of the abdomen pelvis were performed with oral and IV contrast. Coronal and sagittal reformats are performed. Exposure: One or more of the following individualized dose reduction techniques were utilized for this examination: 1. Automated exposure control 2. Adjustment of the mA and/or kV according to patient size 3. Use of iterative reconstruction technique. FINDINGS: Minimal bibasilar lung atelectasis. No evidence of free air identified in the abdomen. Mild decreased attenuation noted throughout the liver likely hepatic steatosis. The visualized spleen, adrenals grossly appears unremarkable. The gallbladder is mildly distended. The stomach is mildly distended. The visualized pancreas grossly appears unremarkable. The small bowel is nondilated. Feces and gas noted throughout the colon. The appendix is normal. Urinary bladder is mildly distended. The bilateral kidneys enhance symmetrically. Small cystic structures identified in the left kidney with the largest measuring 7 mm are difficult to characterize probably cyst. Moderate aortic atherosclerosis. Moderate compression change of L4 vertebral body. Moderate degenerative changes lumbar spine. IMPRESSION: 1. No acute intra-abdominal findings. 2. Age-indeterminate moderate compression change of L5 vertebral body. 3. Small cystic structures identified in the left kidney are difficult to characterize with the largest measuring 7 mm probably cyst. 4. Mild hepatic steatosis. Electronically signed by: Raymon Truong MD (07/20/2018 4:01 PM) [id number] DICTATED and SIGNED BY: RAYMON TRUONG MD DATE: 07/20/18 1550 PE: GEN: NAD HEENT: Atraumatic, PERRLA LUNGS: CTAB HEART: RRR, no murmurs ABD: NABS, S/ND/NT, no masses EXTREMITY: No edema SKIN: No rashes, no jaundice NEURO/PSYCH: A & O 3 A/P: A 57 years old male patient who is currently admitted after he presented with epigastric abdominal pain. Abdominal exam was benign with no area of tenderness or guarding. Imaging of abdomen notable for negative acute process. 1- Epigastric abdominal pain. 2- Nonalcoholic fatty liver disease. 3-Moderate compression changes of L5 vertebral body as per CT report. 4- Small cystic lesion in the left kidney. Recommendation: - PPI BID. Advised to take half an hour before meal time. - Avoid NSAIDS. - Advised to stop smoking cigarettes. - Advise weight reduction. - He needs to follow up his LFTs with PCP or . - EGD as out patient ( with or NH) to rule out luminal process including but not limited to inflammations or ulcerations. - Patient reported that he had recent colonoscopic exam at [facility] that was normal. - He also reported that he was screened for HCV and was negative ( with extensive skin tattoos that he had three decades ago). - Patient can be discharged from GI stand point. Thanks for involving us in the care of this patient. JOSELIN KNOX MD Jul 21, 2018 15:20
== END 2018-07-21 16:45 | disposition home or self-care (01) | DRG 315 ==
LOC: ER 02:26 → 5 SOUTH 04:26 → OBSVTOIN 06:10 → INTOOBSV 06:10
PROVIDERS: ADMIT Internal Medicine; ATTEND Internal Medicine
DX: I95.9 Hypotension, unspecified (principal); M48.56XA Collapsed vertebra, not elsewhere classified, lumbar region, initial encounter for fracture; E86.0 Dehydration; K21.9 Gastro-esophageal reflux disease without esophagitis; F10.129 Alcohol abuse with intoxication, unspecified; F17.210 Nicotine dependence, cigarettes, uncomplicated; F41.9 Anxiety disorder, unspecified; F44.5 Conversion disorder with seizures or convulsions; I10 Essential (primary) hypertension; I25.10 Atherosclerotic heart disease of native coronary artery without angina pectoris; I25.2 Old myocardial infarction; K59.00 Constipation, unspecified; R53.82 Chronic fatigue, unspecified; K76.0 Fatty (change of) liver, not elsewhere classified; N28.9 Disorder of kidney and ureter, unspecified; Z79.82 Long term (current) use of aspirin; Z82.49 Family history of ischemic heart disease and other diseases of the circulatory system; Z95.5 Presence of coronary angioplasty implant and graft; Z88.8 Allergy status to other drugs, medicaments and biological substances; Z79.899 Other long term (current) drug therapy
CPT/HCPCS: 36415; 71045; 74177; 80047; 80048; 80053; 80061; 82274; 83690; 83735; 83880; 84484; 85025; 85379; 93005; 93306; 96374; 96375; C9113; G0378; G0379; G0480; J1650; J2405; Q9966; Q9967; 99285-25

== ENCOUNTER → 2018-07-30 | Day surgery (SDC) | payer OTHER ==
[~2018-07-30] MED LIST: ASPI325T8 PO; BUPR200T2 PO; CALC300T5 PO; CARV6.252 PO; ESCITALOPRAM OX10 MG PO; FOLI1TAB16 PO; IV RINGERS,LACTATED 1000ML 1,000 ML IV SCH; PROPOFOL 20 ML IV ONE; Pantoprazole PO; THIA100T22 PO
--- NOTE | 2018-07-30 12:51 | PDOC1 ---
History and Physical Date of Admission Date of Admission DATE: 07/30/18 TIME: 12:44 Source Source: Chart review, Patient History of Present Illness History of Present Illness 57 y/o male with long h/o dyspepsia. Largely untreated except for prn antacids until recently. Remote EGD with results not recalled. Concern re: Lauren's and here for EGD. No PUD, GB, liver or pancreatic history. Smokes. Heavy ETOH in past; occasional binges now. No overt bleeding. Some weight loss. Screening colonoscopy March this year at [facility] felt normal. Past Medical History Cardiovascular: CAD (with PCI) Psych: Anxiety, Other (Conversion disorder/pseudoseizures) Musculoskeletal: Other (Chronic fatigue) Past Surgical History Past Surgical History Denies Past Surgical History: No pertinent history Family History Family History: Hypertension, Other (GB disease in sister, otherwise GIFH negative) Social History Smoke: 1 pack per day ALCOHOL: heavy Drugs: None Current Medications Current Medications Current Medications Ringer's Solution 1,000 ml @ 75 mls/hr [id number] IV Last administered on at 12:15; Start 07/30/18 at 12:15 Active Scripts Active [Pantoprazole] 40 MG Tablet.dr 40 Mg PO DAILYAC 30 Days Carvedilol 6.25 Mg Tablet 6.25 Mg PO BIDWMEALS 30 Days Reported Tums (Calcium Carbonate) 300 Mg Tab.chew 300 Mg PO Aspirin 325 Mg Tablet 1 Tab PO DAILY Folic Acid 1 Mg Tablet 1 Tab PO DAILY Vitamin B-1 (Thiamine Mononitrate) 100 Mg Tablet 100 Mg PO DAILY Escitalopram Oxalate 10 Mg Tablet 1 Tab PO DAILY Allergies Allergies: Coded Allergies: morphine (Verified Adverse Reaction, Intermediate, 07/21/18) DRY HEAVES ROS Review of System Otherwise negative. Physical Exam General: Alert, Oriented X3, Cooperative, No acute distress Lungs: Clear to auscultation Heart: S1S2, RRR, no gallops, no murmurs Abdomen: Normal bowel sounds, Soft, No tenderness, No hepatosplenomegaly, No masses Rectal Exam: not examined Extremities: No cyanosis, No edema Skin: No significant lesion Neuro: Normal gait, Normal speech, Strength at 5/5 X4 ext, Normal tone, Sensation intact, Cranial nerves 3-12 NL, Reflexes 2+ Psych/Mental Status: Mental status NL, Mood NL Vitals Vitals Vital Signs Date Time Temp Pulse Resp B/P (MAP) Pulse Ox O2 Delivery O2 Flow Rate FiO2 07/30/18 12:27 97.6 55 18 98 97.6 VTE Prophylaxis Ordered VTE Prophylaxis Devices: No VTE Pharmacological Prophylaxi: No Assessment/Plan Assessment/Plan IMP: Chronic dyspepsia, r/o Lauren's PLAN: EGD. JIM FOSTER MD Jul 30, 2018 12:51
--- NOTE | 2018-07-30 13:16 | PDOC4 ---
PROCEDURE Procedure EGD/biopsies Indication: Chronic dyspepsia, r/o Lauren's Meds: per anesthesia Findings: E--few inlet patches, proximal esophagus. Mostly healed, probably grade II esophagitis at 41. G--Petechiae anterior wall, body c/w prolapse during reflux/vomiting. Antral biopsies. D--Normal to second portion. Tail. well. IMP: Reflux, no Lauren's. REC: Continue current meds, diet. Await biopsies. F/u in 2 weeks. JIM FOSTER MD Jul 30, 2018 13:16
[2018-07-30 13:28] VITALS: BP 122/70
--- NOTE | 2018-07-31 16:08 | PATHOLOGY ---
[facility] Accession Number: [id number] . 01 Material submitted: . GASRIC BX R/O H PYLORI . 01 Clinical history: . Abdominal pain . 02 Diagnosis: Gastric biopsies: - Congestion and focal mild chronic inflammation. [facility]/07/31/2018 . 02 Comment: Sections of the gastric biopsy reveal segments of gastric antral mucosa showing congestion and focal mild chronic inflammation with a few admixed eosinophils. A properly controlled immunoperoxidase stain for Helicobacter is negative for Helicobacter organisms. There is no evidence of malignancy. (JPM:[facility] 07/31/2018) . Special stain performed: Immunoperoxidase stain for Helicobacter . 02 Electronically signed: . Isaak Garcia MD, Pathologist NPI- [id number] . 01 Gross description: . Received in formalin labeled "Noah Nuñez, gastric BX, rule out H. pylori," are 3 segments of rossi soft tissue measuring 1.1 x 0.8 x 0.3 cm in aggregate dimensions and ranging from 0.4 to 0.6 cm in maximum dimension. The specimen is submitted entirely in cassette A1. ([facility]; 07/30/2018) TOB/TOB . 02 Pathologist provided ICD-10: K29.50, K31.89 . 02 CPT . 935284, I17217 Specimen Comment: A courtesy copy of this report has been sent to Specimen Comment: [phone]. Specimen Comment: Report sent to Performed at: 01 [facility] [address] [facility] [address], [place] [id number] MD Alexander Medina MD Phone: [phone] Performed at: 02 [facility] [address] [place], [place] [id number] MD Isaak Garcia MD Phone: [phone]
== END | disposition home or self-care (01) ==
LOC: SURG 12:07
PROVIDERS: ATTEND Internal Medicine Gastroenterology
DX: K21.0 Gastro-esophageal reflux disease with esophagitis (principal); K31.89 Other diseases of stomach and duodenum; K29.50 Unspecified chronic gastritis without bleeding; I25.10 Atherosclerotic heart disease of native coronary artery without angina pectoris; F41.9 Anxiety disorder, unspecified; Z72.89 Other problems related to lifestyle; Z82.49 Family history of ischemic heart disease and other diseases of the circulatory system; F17.210 Nicotine dependence, cigarettes, uncomplicated; Z79.899 Other long term (current) drug therapy; Z88.5 Allergy status to narcotic agent
CPT/HCPCS: 43239; 88305; 88342; J2704